=== PATIENT | female | born 1990 | race Two or more races ===

== ENCOUNTER 2024-02-23 01:48 | Inpatient (IN) | payer MEDICAID ==
[~2024-02-23] VITALS: Ht 154.9 cm; Wt 108.4 kg
[2024-02-23] MEDS: SODIUM CHLORIDE 0.9% 1,000 ML IV ONE ×2 (02:15→02:45)
[2024-02-23 02:22] LABS: Hematocrit 41.2 % (36.0-46.0); Hemoglobin 14.1 g/dL (12.2-16.2); Mean Corpuscular Hgb Conc. 34.4 g/dL (32.0-36.0); Mean Corpuscular Volume 90.2 fL (80.0-100.0); Platelet Count (auto) 306 10^3/uL (140-450); Red Blood Cells 4.56 10^6/uL (4.0-5.20); Red Cell Distribution Width 13.2 % (11.8-14.3); White Blood Cell 7.3 10^3/uL (4.4-10.8)
[2024-02-23 02:33] LABS: Chloride 107 mmol/L (98-107)
[2024-02-23 02:34] LABS: Potassium 3.8 mmol/L (3.5-5.1); Sodium 141 mmol/L (136-145)
[2024-02-23 02:35] LABS: Anion Gap 7 (5-15); Band Neutrophils % (manual) 0; Basophils % (manual) 0 (0.0-2.0); Blast Cells 0; Calcium 9.7 mg/dL (8.7-10.4); Carbon Dioxide 27 mmol/L (20-31); Metamyelocytes % 0; Myelocytes % 0; Promyelocytes % 0; Reactive Lymphocytes 0
[2024-02-23 02:40] LABS: BUN/Creatinine Ratio 13.3 (10.0-20.0); Blood Urea Nitrogen 10 mg/dL (9-23); Glucose 107 mg/dL (74-106)
[2024-02-23 02:54] LABS: Eosinophils % (manual) 3 (0-7); Lymphocytes % (manual) 42 (10.0-50.0); Monocytes % (manual) 14 (0-12); Platelet Estimate Adequate; Smudge Cells 2 /100 WBC
[2024-02-23 03:01] VITALS: PULSE 93; RESP 18; O2SAT 100
[2024-02-23] MEDS: ONDANSETRON HCL 4 MG/2 ML VIAL IV ONE (03:09)
[2024-02-23] MEDS: MORPHINE SULFATE 4 MG/ML SYR/VIAL IV ONE (03:10)
[2024-02-23] MEDS ORDERED: MORPHINE SULFATE INJ 2 MG/ml SYRG IV PRN ×2 (05:30→05:45)
[2024-02-23] MEDS ORDERED: hydrALAZINE HCL 20 MG/ML VL IV PRN (05:45)
[2024-02-23 05:52] LABS: Albumin 4.5 g/dL (3.2-4.8); Bilirubin, Direct 0.1 mg/dL (<0.3); Bilirubin, Total 0.4 mg/dL (0.2-1.0); Total Protein 7.6 g/dL (5.7-8.2)
[2024-02-23 06:09] LABS: INR 0.97 (0.9-1.15); Partial Thromboplastin Time 26.9 SEC (24.5-34.5); Prothrombin Time 10.3 sec (9.3-11.8)
[2024-02-23 06:53] LABS: Urine Bacteria None Seen /hpf (None Seen)
[2024-02-23 07:34] LABS: Amphetamine Screen, Urine Neg (NEGATIVE)
[2024-02-23 07:35] LABS: Barbiturate Scree,Urine Neg (NEGATIVE); Benzodiazephine Screen, Urine Neg (NEGATIVE); Cocaine Screen, Urine Neg (NEGATIVE)
[2024-02-23 07:36] LABS: Cannabinoid Screen, Urine Neg (NEGATIVE); Opiate Scree,Urine Pos (NEGATIVE); Phencyclidine Screen, Urine Neg (NEGATIVE)
[2024-02-23 07:38] LABS: Urine Blood Negative /uL (Negative); Urine Clarity Turbid (Clear); Urine Color Yellow (Yellow); Urine Mucus FEW (None Seen); Urine Protein, UAD TRACE (Negative); Urine Specific Gravity 1.027 (1.001-1.035); Urine Urobilinogen Normal (Negative); Urine WBC 2 /hpf (0 - 5)
[2024-02-23 08:00] VITALS: PULSE 90; RESP 16; O2SAT 99
[2024-02-23 08:49] LABS: Alanine Aminotransferase 50 U/L (7-40); Albumin 4.4 g/dL (3.2-4.8); Alkaline Phosphatase 81 U/L (46-116); Anion Gap 7 (5-15); Aspartate Aminotransferase 53 U/L (13-40); BUN/Creatinine Ratio 11.9 (10.0-20.0); Blood Urea Nitrogen 8 mg/dL (9-23); Calcium 9.6 mg/dL (8.7-10.4); Carbon Dioxide 26 mmol/L (20-31); Chloride 108 mmol/L (98-107); Glucose 101 mg/dL (74-106); Potassium 4.4 mmol/L (3.5-5.1); Sodium 141 mmol/L (136-145)
[2024-02-23 08:50] LABS: Bilirubin, Total 0.6 mg/dL (0.2-1.0); Total Protein 7.4 g/dL (5.7-8.2)
[2024-02-23] MEDS ORDERED: ONDANSETRON HCL 4 MG/2 ML VIAL IV PRN (10:00)
[2024-02-23] MEDS: D5W/SOD CHL 0.45%/KCL 20MEQ 1,000 ML IV SCH (16:27)
[2024-02-23] MEDS: ERGOCALCIFEROL 50,000 UNIT(1.25MG) CAP PO SCH (16:27)
[2024-02-24 02:30] VITALS: PULSE 64; RESP 19; O2SAT 97
[2024-02-24 13:30] VITALS: PULSE 64; RESP 19; O2SAT 97
[2024-02-24 17:05] VITALS: BP 139/86; PULSE 85; RESP 19; TEMP 98.3; O2SAT 98
== END 2024-02-24 17:06 | disposition home or self-care (01) ==
LOC: ER 01:48 → OVERFLOW 05:29
PROVIDERS: ADMIT Internal Medicine; ATTEND Internal Medicine
DX: K80.00 Calculus of gallbladder with acute cholecystitis without obstruction (principal); E55.9 Vitamin D deficiency, unspecified; E66.01 Morbid (severe) obesity due to excess calories; Z68.42 Body mass index [BMI] 45.0-49.9, adult; I10 Essential (primary) hypertension; R74.01 Elevation of levels of liver transaminase levels; Z87.891 Personal history of nicotine dependence
CPT/HCPCS: 36415; 74176; 76705; 80048; 80053; 80076; 80307; 80320; 81001; 82306; 82607; 83036; 83690; 84443; 84702; 85007; 85027; 85610; 85730; 86850; 86900; 86901; 99291; G0378; J2405